=== PATIENT | female | born 1975 | race Caucasian/White ===

== ENCOUNTER 2017-03-13 02:19 | Emergency (ER) | payer OTHER | END 2017-03-13 03:10 | disposition home or self-care (01) | LOC: ER1 02:19 | DX: Z53.21 Procedure and treatment not carried out due to patient leaving prior to being seen by health care provider (principal) ==

== ENCOUNTER 2022-01-05 03:14 | Emergency (ER) | payer OTHER ==
[2022-01-05 04:36] LABS: HEMOGLOBIN 13.4 gm/dl (12.3-15.3); RED BLOOD COUNT 4.59 M/UL (4.00-5.10); WHITE BLOOD COUNT 10.1 K/UL (4.5-11.0)
[2022-01-05 04:59] LABS: BUN/CREATININE RATIO 31 (0-10)
[2022-01-05] MEDS ORDERED: IBUPROFEN600 MG PO (05:30)
[2022-01-05] MEDS ORDERED: BACTRIM DS TAB1 EACH PO (05:30)
[2022-01-05] MEDS ORDERED: CEPHALEXIN500 MG PO (05:30)
== END 2022-01-05 06:57 | disposition home or self-care (01) ==
LOC: ER1 03:14
PROVIDERS: Physician Assistant
DX: L02.411 Cutaneous abscess of right axilla (principal); L03.111 Cellulitis of right axilla; L03.121 Acute lymphangitis of right axilla; F17.290 Nicotine dependence, other tobacco product, uncomplicated; Z88.1 Allergy status to other antibiotic agents
CPT/HCPCS: 10060; 80053; 83605; 83735; 83880; 84100; 85025; 85610; 85652; 85730; 86140; 87040; 87070; 87077; 87186; 87205; 99283; J3370; J7030